=== PATIENT | male | born 1975 | race African-American/Black ===

== ENCOUNTER 2018-02-04 13:25 | Emergency (ER) | payer MEDICAID ==
[~2018-02-04] VITALS: Ht 182.9 cm; Wt 72.5 kg
[~2018-02-04 13:25] MED LIST: ALBU17AE27 IH
[2018-02-04] MEDS ORDERED: IBUPROFEN 800 MG TABLET PO ONE (14:45)
[2018-02-04 15:48] VITALS: BP 130/72
== END 2018-02-04 15:51 | disposition home or self-care (01) ==
LOC: EMS 13:26
DX: S93.402A Sprain of unspecified ligament of left ankle, initial encounter (principal); J45.909 Unspecified asthma, uncomplicated; F17.210 Nicotine dependence, cigarettes, uncomplicated; F12.90 Cannabis use, unspecified, uncomplicated; F19.90 Other psychoactive substance use, unspecified, uncomplicated; X58.XXXA Exposure to other specified factors, initial encounter; Y93.01 Activity, walking, marching and hiking; Y92.89 Other specified places as the place of occurrence of the external cause; Y99.8 Other external cause status
CPT/HCPCS: 29515